=== PATIENT | male | born 1955 | race Caucasian/White ===

== ENCOUNTER 2024-09-18 18:26 | Emergency (ER) | payer MEDICARE, BC, SELFPAY ==
[2024-09-18 18:30] VITALS: BP 146/70; RESP 20; O2SAT 74; BMI 47.5
[2024-09-18] MEDS: EPINEPHrine 0.1 MG/ML 10ML SYRINGE (CRASH CART) 1 MG IV (18:30)
--- NOTE | 2024-09-18 18:34 | PC.NURSE ---
CODE FLOW NOTE Pre-Hospital Information: @ 1721 EMS Toned out to the pt residence d/t not breathing @ 1741 EMS on scene and began ACLS care. They report pt has been receiving CPR by family since advised by Dispatch shortly after the call out @ 1745 EMS placed pt on Auto-pulse. @ 1758 Dispatch called [facility] to notify staff of incoming CODE BLUE and that ETA to ER is 15 min . @ 1805 Room 3 ready for CODE. MD, RT, Airplane Dispatch Clerk, and remaining ER staff prepared for code and roles established by Charge Nurse Lolly Painting RN @ 181 Called [facility] Dispatch for an update on ETA. State They are coming through town now, maybe 5 min . MD, RT, and staff aware. @ 182 EMS pulled into ER Ambulance bay. Voluntary Fire-fighter handed me the pt's wallet to register pt. I attempted to locate pt by Name//Address and no known pt was found. This was searched 3x and verified by Scot A EMT thus I made a new pt account. @ 182 Pt arrived to room 3, and EMS began to give report and staff preparing to move pt to ER stretcher. Per Medic Travis Rachel, Patient went to work today but was sent home due to not feeling well. Family states that this evening they went outside for a brief time maybe 1-2 minutes and when they returned the patient was on the floor and not breathing. They stated CPR per dispatch and down time was approx 20 min prior us on scene. They placed pt on autopulse and established a LMA and IO to RLE. They continued CPR in route. 1 Shock was delivered due to possible v-fib on monitor, and patient has maintained no pulse. IVF administered through IO in route. Medic gave 4x Epi per IO in route last dose was just before we pulled in [1822] . Estimated downtime is 1 hr at this time. @ 182 Pt on ER stretcher, Staff placed Zoll pads on pt and attempting to get IV access and placing on cardiac and hemodynamic monitoring. MD wanted to wait for a pulse check until next check . I gave pt's wallet to Scot A EMT to give to Registration to attempt to complete registration. @ 182 Called for a pulse check and pre-charged zoll. Femoral pulse and carotid pulse found and Zoll charged. No pulse identified at pulse check and Asystole on Zoll monitor, resumed compressions. FS 210 @ 1827 HR 101 with CPR, SpO2 64%. Attempting to obtain BP. Failed access to LAC. Attempting to place IV to R arm. @ 182 Pulse check completed after pre-charged zoll and pulse felt with CPR. No Pulse felt, asytole maintained on monitor, resumed cpr. prepares to intubate with ETT. @ 182 BP 146/70, HR 100, 74% SpO2. MD changed to Camille from stylet. @ [address] 7.5 and 25@ lip. Color change noted, and bilateral breath sound heard per MD. Epi Give per IO and Flushed with 10ml Saline Flush. CPR Continues. I called Registration to ask if any family had arrived for pt. States no one has arrived yet. Asked them to notify ER staff JOSH when anyone arrived for pt. @ 1831 SpO2 44% with 100% FiO2 and Ambag by RT. Pulse check completed after pre-charged zoll and pulse felt with CPR. No Pulse felt, asytole maintained on monitor, resumed cpr. states We will do 1 more round of CPR. If patient remains pulse-less and asystole we will terminate efforts. Does anyone have any suggestions? Staff recommended Bicarb, Lidocaine, or Narcan. stated No we will not be doing that . IV placed to L hand 20g PIV by Travis Galvan RN and labs obtained and given to Oscar in Lab. @ 183 Pulse check completed after pre-charged zoll and pulse found with CPR. No Pulse felt, asytole maintained on monitor, called to terminte resuscitative measures. Dr Richard Gloria called TOD @ 183
--- NOTE | 2024-09-18 18:36 | ED_ITS ---
Discharge Plan Disposition Patient Disposition: Date/Time: 09/18/24 18:34 Clinical Impressions Clinical Impression: Cardiac arrest, Asystole Discharge ED Provider: Joel Gloria Adult HPI General Stated complaint: CODE BLUE Time Seen by Provider: 09/18/24 18:36 History of Present Illness HPI narrative: Patient is a reportedly 69-year-old male with unknown past medical history presenting as a CODE BLUE. According to EMS patient had a witnessed arrest about 30 minutes prior to their arrival. Family stated that he went outside and then was found down. No bystander CPR performed. It took EMS around 25 minutes to arrive to the emergency department. Upon arrival EMS arrival patient had 1 rhythm of V-fib and was shocked once with 4 rounds of epi. Per EMS patient was in asystole on the remaining rhythm checks. Glucose in the 200s per EMS Related Data Allergies Allergy/AdvReac Type Severity Reaction Status Date / Time Unable to Assess Allergy Verified 09/18/24 18:44 [facility] Disclaimer: The information contained in this section may have been updated after the patient was seen, as this information can be updated by other users. Social History Smoking Status: Unknown if ever smoked alcohol intake: never current occupational status: other Travel in the last 8 weeks: None ROS Obtained: Yes unobtainable due to mental condition Physical Exam General General appearance: other (Unresponsive) Head Head exam: atraumatic Respiratory Respiratory exam: Present other (Bilateral breath sounds, intubated ) Cardiovascular Cardiovascular exam: Present other (Asystole) Neurological Exam Neurological exam: Present other (Unresponsive) Medical Decision Making Medical Records Screening: Per USPSTF and CDC recommendations, given the prevalence of disease in our region, it is our hospital?s policy to screen for HIV and viral Hepatitis for all patients aged 18 and over and those with ongoing risk factors. Kurtis Inquiry Pt receiving controlled substance: No Orders (Tests/Meds): ED MEDICATIONS Discontinued Medications Generic Name Dose Route Start Last Admin Trade Name Freq PRN Reason Stop Dose Admin Epinephrine HCl 1 mg 09/18/24 18:30 Epinephrine 0.1 Mg/Ml 10ml Syringe (Crash Cart) IV 09/18/24 18:31 ONCE ONE Medical Decision Narrative: In summary, this 69-year-old male presents to the emergency department today with CODE BLUE. On initial evaluation patient is on automated CPR machine with LMA, our first rhythm was asystole and continued to be asystole. ACLS was performed. patient had been down for an estimated hour with the first 30 minutes without bystander CPR. Patient was not hypoglycemic on our fingerstick glucose. Patient's LMA was switched out for ET tube. due to futility, efforts were stopped and time of was called at 1834. differential diagnosis includes but is not limited to hypoxia, ACS, hypokalemia, hypoglycemia. Procedures Intubation Time out performed: No sedative: none Laryngoscope: other (Hyper angulated blade) Assist Device Used: Bougie ET Tube Size: 7.5 ET Tube Uncuffed: Yes Tube Secured Depth (cm): 26 Tube Secured Location: lips Tube Placement Confirmation: visualized tube passing through cords, equal breath sounds bilaterally and confirmation by capnometry Patient Tolerated Procedure: no complications Intubation Complications: none Critical Care Critical Care Time Critical Care Time: Yes Attestation: On 09/18/24, the high probability of a clinically significant, sudden or life threatening deterioration of the following system(s) required my full and direct attention, intervention and personal management. The time I documented below is in addition to time spent performing reported procedures but includes the following listed in this critical care notation. Total Time Total Critical Care Time: 15
--- NOTE | 2024-09-18 18:42 | PC.NURSE ---
Jean Pierre Young Dispatch to paged on-call Product Manager Financial Services
--- NOTE | 2024-09-18 19:05 | PC.NURSE ---
Pt's brother brought to [place] room. Dr Gloria and A Wilson RN notified family of passing. Termite Exterminator also arrived at this time and introduced herself. Brother stated he wanted to wait in the lobby d/t feeling claustrophobic. MD aware of where family is at.
--- NOTE | 2024-09-18 19:12 | EXP.DEATH.NO ---
Pronouncement Note Date and Time of Date of : 09/18/24 Time of : 18:34 PCOD Preliminary cause of : Cardiac arrest Additional Data Confirmation of : no pulse, no respirations, no heart sounds and pupils fixed and dilated Family: contacted Attending/PCP notified?: No Attending physician: Joel Gloria Was code activated?: Yes Autopsy should be considered if:: Unknown or unanticipated medical complications Cause is not known with certainty on clinical grounds Would allay concerns of the public/family regarding Unexplained/unexpected apparently natural and not subject to a forensic medical jurisdiction DOA Within 24 hours of admission Sustained or apparently sustained injury while in the hospital Result of high risk, infectious and contagious disease Obstetric and pediatric arising from environmental or occupational hazard Unexplained/unexpected from dental, medical, or surgical diagnostic procedures and/or therapies Would disclose a known or suspected illness which also may have a bearing on survivors or recipients of transplanted organs Autopsy requested?: No Inappropriate situation licensing registration examiner notified?: Yes Organ bank notified?: No Advance directives: No
--- NOTE | 2024-09-18 19:41 | PC.NURSE ---
[facility] notified Spoke with Erika Wade
--- NOTE | 2024-09-18 19:52 | PC.NURSE ---
Vending Manager released patient's wallet to patient's brother who is the only family member present home notified and en route.
--- NOTE | 2024-09-18 21:22 | PC.NURSE ---
Release by [facility]
--- NOTE | 2024-09-18 21:31 | PC.NURSE ---
Pt released to home
[2024-09-18 21:33] VITALS: BP 000/00; PULSE 0; RESP 0; TEMP -17.7; TEMP 0; O2SAT 0
== END 2024-09-18 21:35 | disposition expired ==
PROVIDERS: Emergency Provider Student in an Organized Health Care Education/Training Program
DX: I46.9 Cardiac arrest, cause unspecified (principal)
CPT/HCPCS: 31500; 92950; 99285; J0171